=== PATIENT | female | born 1980 | race Caucasian/White ===

== ENCOUNTER 2019-05-21 19:53 | Emergency (ER) | payer OTHER ==
[2019-05-21 20:06] VITALS: BP 135/89; PULSE 87; TEMP 98; BMI 22.1
[2019-05-21] MEDS ORDERED: SODIUM CHLORIDE 1,000 ML IV STA (21:28)
[2019-05-21] MEDS ORDERED: ONDANSETRON 4 MG/2 ML VIAL IVPUSH ONE (21:28)
[2019-05-21 22:28] LABS: BASO % 0.4 % (0-2.0); EOS % 0.3 % (0-4.5); HEMOGLOBIN 14.3 GM/dl (10.7-15.3); MCH 30.7 pg (25.7-33.7); MCHC 33.2 g/dl (32.0-36.0); MEAN CELL VOLUME 92.5 fl (80-96); MEAN PLT VOLUME 9.1 fl (7.5-11.1); MONO % 4.7 % (3.8-10.2); NEUT % 60.6 % (42.8-82.8); PLATELET COUNT 284 K/MM3 (134-434); RBC 4.65 M/mm3 (3.60-5.2); WHITE BLOOD COUNT 7.3 K/mm3 (4.0-10.8)
[2019-05-21 22:37] LABS: ALBUMIN 4.9 g/dl (3.4-5.0); BILIRUBIN,TOTAL 0.6 mg/dl (0.2-1); CALCIUM 9.6 mg/dl (8.5-10); CREATININE 0.6 mg/dl (0.55-1.3); POTASSIUM 4.3 mmol/L (3.5-5.1); TOT PROT 7.8 g/dl (6.4-8.2)
[2019-05-21] MEDS ORDERED: ONDANSETRON 4 MG/2 ML VIAL ONE (22:44)
[2019-05-21] MEDS ORDERED: KETOROLAC TROMETHAMINE 30 MG/1 ML VIAL ONE (22:50)
[2019-05-21] MEDS ORDERED: KETOROLAC TROMETHAMINE 30 MG/1 ML VIAL IVPUSH ONE (22:52)
--- NOTE | 2019-05-26 19:44 | PDOC ---
Documentation entered by Florecita Toussaint SCRIBE, acting as scribe for Lorraine Maki MD. Lorraine Maki MD: This documentation has been prepared by the heleneNorbert Aiswarya, SCRIBE, under my direction and personally reviewed by me in its entirety. I confirm that the documentation accurately reflects all work, treatment, procedures, and medical decision making performed by me. History of Present Illness - General Chief Complaint: Lightheaded Stated Complaint: DIZZY, WEAK Time Seen by Provider: 05/21/19 20:05 History Source: Patient Exam Limitations: No Limitations - History of Present Illness Initial Comments: 05/21/19 21:43 The patient is a 38 year old female, with a significant PMH of lupus (recently diagnosed 1 month ago) who presents to the emergency department with lightheadedness for the past 3 days . The patient states she endorses associated symptoms of headache, nausea, dizziness, fatigue, and decreased appetite (last time she ate was this morning). The patient states she is currently on antibiotics for throat pain. The patient denies chest pain, shortness of breath.Denies fever, chills, vomit, diarrhea and constipation.Denies dysuria, frequency, urgency and hematuria. Allergies: propofol Past surgical history: None reported Social history: None reported PCP: None reported Past History - Past Medical History Allergies/Adverse Reactions: Allergies Allergy/AdvReac Type Severity Reaction Status Date / Time propofol Allergy Verified 05/21/19 19:56 Home Medications: Ambulatory Orders Amoxicillin - [Amoxicillin 500mg Capsule -] 875 mg PO BID 05/21/19 COPD: No Other medical history: STREPT THROAT, NEW DIAGNOSES OF LUPUS - Psycho Social/Smoking Cessation Hx Smoking History: Never smoked Have you smoked in the past 12 months: No Information on smoking cessation initiated: No Hx Alcohol Use: No Drug/Substance Use Hx: No Review of Systems - Review of Systems Able to Perform ROS?: Yes Comments:: 05/21/19 21:44 GENERAL/CONSTITUTIONAL: No fever or chills. No weakness. HEAD, EYES, EARS, NOSE AND THROAT: No change in vision. No ear pain or discharge. No sore throat. CARDIOVASCULAR: No chest pain or shortness of breath. RESPIRATORY: No cough, wheezing, or hemoptysis. GASTROINTESTINAL:+Nausea. No vomiting, diarrhea or constipation. GENITOURINARY: No dysuria, frequency, or change in urination. MUSCULOSKELETAL: No joint or muscle swelling or pain. No neck or back pain. SKIN: No rash NEUROLOGIC:+headache. No vertigo, loss of consciousness, or change in strength/ sensation. ENDOCRINE: No increased thirst. No abnormal weight change. HEMATOLOGIC/LYMPHATIC: No anemia, easy bleeding, or history of blood clots. ALLERGIC/IMMUNOLOGIC: No hives or skin allergy. *Physical Exam - Vital Signs Last Vital Signs Temp Pulse Resp BP Pulse Ox 98 F 87 16 135/89 100 05/21/19 19:58 05/21/19 19:58 05/21/19 19:58 05/21/19 19:58 05/21/19 19:58 - Physical Exam Comments: 05/21/19 21:44 GENERAL:+warmth Awake, alert, and fully oriented, in no acute distress HEAD: No signs of trauma EYES: PERRLA, EOMI, sclera anicteric, conjunctiva clear ENT: +Dry mucosa. +Slightly erythematous pharynx.Auricles normal inspection, hearing grossly normal, nares patent. NECK: Normal ROM, supple, no lymphadenopathy, JVD, or masses LUNGS: Breath sounds equal, clear to auscultation bilaterally. No wheezes, and no crackles HEART: Regular rate and rhythm, normal S1 and S2, no murmurs, rubs or gallops ABDOMEN: Soft, nontender, normoactive bowel sounds. No guarding, no rebound. No masses EXTREMITIES: Normal range of motion, no edema. No clubbing or cyanosis. No cords, erythema, or tenderness NEUROLOGICAL: Cranial nerves II through XII grossly intact. Normal speech, normal gait SKIN: Warm, Dry, normal turgor, no rashes or lesions noted. ED Treatment Course - LABORATORY CBC & Chemistry Diagram: 05/21/19 22:05 05/21/19 22:05 - ADDITIONAL ORDERS Additional order review: Laboratory Results 05/21/19 22:05 Sodium 139 Potassium 4.3 Chloride 105 Carbon Dioxide 26 Anion Gap 8 BUN 10.0 Creatinine 0.6 Est GFR (CKD-EPI)AfAm 134.01 Est GFR (CKD-EPI)NonAf 115.63 Random Glucose 95 Calcium 9.6 Total Bilirubin 0.6 AST 18 ALT 17 Alkaline Phosphatase 60 Total Protein 7.8 Albumin 4.9 05/21/19 22:05 RBC 4.65 MCV 92.5 MCHC 33.2 RDW 12.0 MPV 9.1 Neutrophils % 60.6 Lymphocytes % 34.0 Monocytes % 4.7 Eosinophils % 0.3 Basophils % 0.4 - Medications Given in the ED: ED Medications Discontinued Medications Generic Name Dose Route Start Last Admin Trade Name Cm PRN Reason Stop Dose Admin Sodium Chloride 1,000 mls @ 1,000 mls/hr 05/21/19 21:28 05/21/19 22:11 Normal Saline - IV 05/21/19 22:27 1,000 mls/hr ASDIR STA Administration Ondansetron HCl 4 mg 05/21/19 21:28 05/21/19 22:43 Zofran Injection IVPUSH 05/21/19 21:29 4 mg ONCE ONE Administration Medical Decision Making - Medical Decision Making As noted above, this 38-year-old woman, newly diagnosed with lupus(not yet treated), and currently taking amoxicillin for strep pharyngitis, presents with fatigue and headache. The patient notes decreased oral intake secondary to her left pharyngitis pain over the last 1-2 days. There has been no vomiting/ diarrhea/high fever. She has no new rash or abdominal pain. Exam as noted. Patient likely has mild dehydration secondary to decreased oral intake and previous fever. IV access was obtained and patient received 1 L normal saline IV. CBC and chemistry profile sent. Laboratory evaluation is all within normal limits. Patient feels less fatigued after IV hydration. She still has some residual headache and she received Toradol 30 mg IV. Patient reports resolution of her headache after IV Tylenol. The patient will be discharged with instructions to rest and maintain oral hydration. She should continue amoxicillin course for 10 days as prescribed. She should alternate ibuprofen with acetaminophen as needed for pain. She should return to the ER if she has any recurrent weakness/headache or if vomiting/high fever occurs. Otherwise, she should plan on following up with her PMD within the next week *DC/Admit/Observation/Transfer Diagnosis at time of Disposition: History of strep pharyngitis, Dehydration - Discharge Dispostion Disposition: HOME Condition at time of disposition: Stable - Referrals Referrals: Kanu Batista [Primary Care Provider] - - Patient Instructions Printed Discharge Instructions: Dehydration Additional Instructions: Rest; drink plenty of fluids Continue Amoxicillin as prescribed for full 10 day course Alternate ibuprofen with acetaminophen as needed for pain Return to ER if you have any recurrent weakness/lightheadedness or severe headache Follow-up with your general doctor within the next week - Post Discharge Activity Discharge - Discharge Information Problems reviewed: Yes Clinical Impression/Diagnosis: History of strep pharyngitis, Dehydration Condition: Stable Disposition: HOME - Follow up/Referral Referrals: Kanu Batista [Primary Care Provider] - - Patient Discharge Instructions Patient Printed Discharge Instructions: Dehydration Additional Instructions: Rest; drink plenty of fluids Continue Amoxicillin as prescribed for full 10 day course Alternate ibuprofen with acetaminophen as needed for pain Return to ER if you have any recurrent weakness/lightheadedness or severe headache Follow-up with your general doctor within the next week - Post Discharge Activity
== END 2019-05-21 23:41 | disposition home or self-care (01) ==
LOC: FER 19:53
PROC: 3E0333Z Introduction of Anti-inflammatory into Peripheral Vein, Percutaneous Approach (ICD-10-PCS; principal; 2019-05-21)
PROC: 3E033GC Introduction of Other Therapeutic Substance into Peripheral Vein, Percutaneous Approach (ICD-10-PCS; 2019-05-21)
PROC: 3E0337Z Introduction of Electrolytic and Water Balance Substance into Peripheral Vein, Percutaneous Approach (ICD-10-PCS; 2019-05-21)
DX: J02.0 Streptococcal pharyngitis (principal); E86.0 Dehydration; M32.9 Systemic lupus erythematosus, unspecified
CPT/HCPCS: 36415; 80053; 85025; 99281-25; J7030